=== PATIENT | female | born 1985 | race African-American/Black ===

== ENCOUNTER 2022-05-22 11:17 | Inpatient (IN) | payer OTHER ==
[2022-05-22 11:39] VITALS: BMI 38.2
[2022-05-22] MEDS ORDERED: BISMUTH SUBSALICYLATE 262 MG/15 ML BTL PO PRN (11:55)
[2022-05-22] MEDS ORDERED: POLYETHYLENE GLYCOL (HEALTHYLAX) 3350 17 GM PACKET PO PRN (11:55)
[2022-05-22] MEDS ORDERED: NICOTINE 10 MG CARTRIDGE (INHALER) IH PRN (11:55)
[2022-05-22] MEDS ORDERED: ONDANSETRON *ODT* 4 MG TABLET SL PRN (11:55)
[2022-05-22] MEDS ORDERED: DICYCLOMINE HCL 10 MG CAPSULE PO PRN (11:55)
[2022-05-22] MEDS ORDERED: IBUPROFEN 400 MG TABLET (FP) PO PRN (11:55)
[2022-05-22] MEDS ORDERED: NALOXONE HCL (KLOXXADO) 8 MG SPRAY NS PRN (11:55)
[2022-05-22] MEDS ORDERED: ACETAMINOPHEN 325 MG TABLET (FP) PO PRN ×2 (11:55)
[2022-05-22] MEDS ORDERED: BENZOCAINE/MENTHOL (CHLORASEPTIC ) LOZENGE MM PRN (11:55)
[2022-05-22] MEDS ORDERED: MAGNESIUM HYDROX 2400MG/30ML ORAL SUSPENSION 30 ML CUP PO PRN (11:55)
[2022-05-22] MEDS ORDERED: MAG HYDROX/AL HYDROX/SIMETH 30 ML UNIT-DOSE CUP PO PRN (11:55)
[2022-05-22] MEDS ORDERED: LORazepam 1 MG TABLET PO PRN (11:55)
[2022-05-22] MEDS ORDERED: LOPERAMIDE HCL 2 MG CAPSULE PO PRN (11:55)
[2022-05-22] MEDS ORDERED: IBUPROFEN 600 MG TABLET (FP) PO PRN (11:55)
[2022-05-22] MEDS: PRENATAL VITAMINS W/ FOLIC ACID TABLET (FP) PO SCH (13:00)
[2022-05-22] MEDS: METHOCARBAMOL 500 MG TABLET PO PRN ×2 (13:01→18:08)
[2022-05-22] MEDS: hydrOXYzine PAMOATE 25 MG CAPSULE (FP) PO PRN ×2 (13:01→17:08)
[2022-05-22] MEDS: NICOTINE 14 MG/24 HOURS TOPICAL PATCH TD SCH (13:05)
[2022-05-22] MEDS ORDERED: LORazepam 2 MG TABLET PO SCH (17:00)
[2022-05-22 18:54] LABS: HEMATOCRIT 39.2 % (32.4-45.2); HEMOGLOBIN 12.6 GM/dL (10.7-15.3); MCH 28.5 pg (25.7-33.7); MCHC 32.1 g/dl (32.0-36.0); MEAN CELL VOLUME 88.7 fl (80-96); MEAN PLT VOLUME 7.6 fl (7.5-11.1); PLATELET COUNT 411 10^3/uL (134-434); RBC 4.42 M/mm3 (3.60-5.2); RDW 15.4 % (11.6-15.6)
[2022-05-22 18:56] LABS: ALBUMIN 3.8 g/dl (3.4-5.0); CALCIUM 9.2 mg/dL (8.5-10.1); CREATININE 0.9 mg/dL (0.55-1.3)
[2022-05-22 18:57] LABS: BLOOD UREA NITROGEN 9.6 mg/dL (7-18); TOT PROT 8.2 g/dl (6.4-8.2)
[2022-05-22 18:58] LABS: BILIRUBIN,TOTAL 0.6 mg/dL (0.2-1)
[2022-05-22] MEDS: chlordiazePOXIDE HCL 25 MG CAPSULE PO PRN (19:46)
[2022-05-22] MEDS ORDERED: METOPROLOL TARTRATE 25 MG TABLET (FP) PO ONE (20:57)
[2022-05-22] MEDS ORDERED: MELATONIN 5 MG TABLETS PO SCH (22:00)
[2022-05-22] MEDS: chlordiazePOXIDE HCL 25 MG CAPSULE PO SCH (22:10)
[2022-05-22] MEDS: ATORVASTATIN CA 20 MG TABLET (FP) PO SCH (22:10)
[2022-05-22] MEDS: MELATONIN 5 MG TABLETS PO SCH (22:11)
[2022-05-22] MEDS: THIAMINE HCL 100 MG TABLET (FP) PO SCH (22:11)
[2022-05-23] MEDS: chlordiazePOXIDE HCL 25 MG CAPSULE PO SCH ×4 (05:33→22:12)
[2022-05-23] MEDS ORDERED: PATIENT'S OWN MEDICATION (NON-FORMULARY) (Valsartan [Valsartan] 320 MG Tablet) PO SCH (10:00)
[2022-05-23] MEDS: amLODIPine BESYLATE 5 MG TABLET (FP) PO SCH (10:25)
[2022-05-23] MEDS: METHOCARBAMOL 500 MG TABLET PO PRN ×2 (10:25→17:18)
[2022-05-23] MEDS: ALLOPURINOL 100 MG TABLET (FP) PO SCH (10:26)
[2022-05-23] MEDS: METOPROLOL TARTRATE 25 MG TABLET (FP) PO SCH (10:27)
[2022-05-23] MEDS: NICOTINE 14 MG/24 HOURS TOPICAL PATCH TD SCH (10:27)
[2022-05-23] MEDS: PRENATAL VITAMINS W/ FOLIC ACID TABLET (FP) PO SCH (10:27)
[2022-05-23] MEDS: VALSARTAN 160 MG TABLET PO SCH (10:43)
[2022-05-23] MEDS: chlordiazePOXIDE HCL 25 MG CAPSULE PO PRN ×2 (13:26→20:11)
[2022-05-23] MEDS: ATORVASTATIN CA 20 MG TABLET (FP) PO SCH (22:12)
[2022-05-23] MEDS: MELATONIN 5 MG TABLETS PO SCH (22:12)
[2022-05-23] MEDS: THIAMINE HCL 100 MG TABLET (FP) PO SCH (22:12)
[2022-05-24] MEDS ORDERED: LORazepam 1 MG TABLET PO SCH (05:00)
[2022-05-24] MEDS: chlordiazePOXIDE HCL 25 MG CAPSULE PO SCH ×4 (05:33→22:17)
[2022-05-24] MEDS: amLODIPine BESYLATE 5 MG TABLET (FP) PO SCH (10:02)
[2022-05-24] MEDS: PRENATAL VITAMINS W/ FOLIC ACID TABLET (FP) PO SCH (10:02)
[2022-05-24] MEDS: METOPROLOL TARTRATE 25 MG TABLET (FP) PO SCH (10:02)
[2022-05-24] MEDS: ALLOPURINOL 100 MG TABLET (FP) PO SCH (10:03)
[2022-05-24] MEDS: VALSARTAN 160 MG TABLET PO SCH (10:03)
[2022-05-24] MEDS: NICOTINE 14 MG/24 HOURS TOPICAL PATCH TD SCH (10:03)
[2022-05-24] MEDS: chlordiazePOXIDE HCL 25 MG CAPSULE PO PRN ×2 (13:36→19:37)
[2022-05-24] MEDS: METHOCARBAMOL 500 MG TABLET PO PRN (17:18)
[2022-05-24] MEDS: MELATONIN 5 MG TABLETS PO SCH (22:15)
[2022-05-24] MEDS: THIAMINE HCL 100 MG TABLET (FP) PO SCH (22:16)
[2022-05-24] MEDS: ATORVASTATIN CA 20 MG TABLET (FP) PO SCH (22:17)
[2022-05-25] MEDS ORDERED: LORazepam 0.5 MG TABLET PO PRN
[2022-05-25] MEDS ORDERED: chlordiazePOXIDE HCL 10 MG CAPSULE PO PRN
[2022-05-25] MEDS ORDERED: LORazepam 0.5 MG TABLET PO SCH (05:00)
[2022-05-25] MEDS: chlordiazePOXIDE HCL 10 MG CAPSULE PO SCH ×4 (05:33→22:12)
[2022-05-25] MEDS: NICOTINE 14 MG/24 HOURS TOPICAL PATCH TD SCH (10:16)
[2022-05-25] MEDS: amLODIPine BESYLATE 5 MG TABLET (FP) PO SCH (10:16)
[2022-05-25] MEDS: VALSARTAN 160 MG TABLET PO SCH (10:16)
[2022-05-25] MEDS: PRENATAL VITAMINS W/ FOLIC ACID TABLET (FP) PO SCH (10:16)
[2022-05-25] MEDS: METOPROLOL TARTRATE 25 MG TABLET (FP) PO SCH (10:16)
[2022-05-25] MEDS: METHOCARBAMOL 500 MG TABLET PO PRN ×2 (10:16→20:21)
[2022-05-25] MEDS: ALLOPURINOL 100 MG TABLET (FP) PO SCH (10:17)
[2022-05-25] MEDS ORDERED: diphenhydrAMINE HCL 50 MG CAPSULE PO ONE (13:39)
[2022-05-25 16:58] VITALS: RESP 18
[2022-05-25] MEDS ORDERED: SUVOREXANT 10 MG TABLET PO PRN (22:00)
[2022-05-25] MEDS: ATORVASTATIN CA 20 MG TABLET (FP) PO SCH (22:12)
[2022-05-25] MEDS: THIAMINE HCL 100 MG TABLET (FP) PO SCH (22:12)
[2022-05-26] MEDS ORDERED: LORazepam 0.5 MG TABLET PO ONE (05:00)
[2022-05-26] MEDS ORDERED: chlordiazePOXIDE HCL 10 MG CAPSULE PO SCH (05:00)
[2022-05-26] MEDS: ALLOPURINOL 100 MG TABLET (FP) PO SCH (09:50)
[2022-05-26] MEDS: METOPROLOL TARTRATE 25 MG TABLET (FP) PO SCH (09:50)
[2022-05-26] MEDS: amLODIPine BESYLATE 5 MG TABLET (FP) PO SCH (09:51)
[2022-05-26] MEDS: VALSARTAN 160 MG TABLET PO SCH (09:51)
[2022-05-26] MEDS: PRENATAL VITAMINS W/ FOLIC ACID TABLET (FP) PO SCH (09:51)
[2022-05-26] MEDS: NICOTINE 14 MG/24 HOURS TOPICAL PATCH TD SCH (09:51)
[2022-05-26 12:54] VITALS: BP 145/77; PULSE 62; TEMP 98.1
[2022-05-27] MEDS ORDERED: chlordiazePOXIDE HCL 10 MG CAPSULE PO ONE (05:00)
== END 2022-05-26 13:45 | disposition home or self-care (01) | DRG 897 ==
LOC: YASAS 11:17 → Y6N 12:10
PROVIDERS: ADMIT Allergy & Immunology; ATTEND Family Medicine
PROC: HZ2ZZZZ Detoxification Services for Substance Abuse Treatment (ICD-10-PCS; principal; 2022-05-22)
DX: F10.230 Alcohol dependence with withdrawal, uncomplicated (principal); F10.280 Alcohol dependence with alcohol-induced anxiety disorder; F10.282 Alcohol dependence with alcohol-induced sleep disorder; F41.9 Anxiety disorder, unspecified; F17.210 Nicotine dependence, cigarettes, uncomplicated; I10 Essential (primary) hypertension; E78.5 Hyperlipidemia, unspecified; E11.9 Type 2 diabetes mellitus without complications; Z79.84 Long term (current) use of oral hypoglycemic drugs; M10.9 Gout, unspecified; E66.9 Obesity, unspecified; Z68.38 Body mass index [BMI] 38.0-38.9, adult
CPT/HCPCS: 36415; 80053; 81025; 83036; 85027; 86780; 93005; 93010; C9803-CS; Q0162; U0003; U0005

== ENCOUNTER 2024-03-26 11:34 | Inpatient (IN) | payer BC ==
[2024-03-26 12:16] VITALS: BMI 36.9
[2024-03-26] MEDS ORDERED: ACETAMINOPHEN 325 MG TABLET (FP) PO PRN (12:33)
[2024-03-26] MEDS ORDERED: LOPERAMIDE HCL 2 MG CAPSULE PO PRN (12:33)
[2024-03-26] MEDS ORDERED: NICOTINE POLACRILEX 2 MG GUM BUC PRN (12:33)
[2024-03-26] MEDS ORDERED: guaiFENesin 600 MG TABLET.ER (FP) PO PRN (12:33)
[2024-03-26] MEDS ORDERED: MAGNESIUM HYDROX 2400MG/30ML ORAL SUSPENSION 30 ML CUP PO PRN (12:33)
[2024-03-26] MEDS ORDERED: BENZOCAINE/MENTHOL (CHLORASEPTIC ) LOZENGE MM PRN (12:33)
[2024-03-26] MEDS ORDERED: POLYETHYLENE GLYCOL (HEALTHYLAX) 3350 17 GM PACKET PO PRN (12:33)
[2024-03-26] MEDS ORDERED: MAG HYDROX/AL HYDROX/SIMETH 30 ML UNIT-DOSE CUP PO PRN (12:33)
[2024-03-26] MEDS ORDERED: BENZONATATE 200 MG CAPSULE PO PRN (12:33)
[2024-03-26] MEDS ORDERED: BISMUTH SUBSALICYLATE 524 MG/30 ML PO PRN (12:33)
[2024-03-26] MEDS ORDERED: NICOTINE POLACRILEX 2 MG LOZENGE BC PRN (12:33)
[2024-03-26] MEDS ORDERED: IBUPROFEN 400 MG TABLET (FP) PO PRN (12:33)
[2024-03-26] MEDS ORDERED: DICYCLOMINE HCL 10 MG CAPSULE PO PRN (12:33)
[2024-03-26] MEDS: chlordiazePOXIDE HCL 25 MG CAPSULE PO ONE (13:05)
[2024-03-26] MEDS ORDERED: chlordiazePOXIDE HCL 25 MG CAPSULE ONE (13:08)
[2024-03-26] MEDS: ONDANSETRON *ODT* 4 MG TABLET SL PRN (14:27)
[2024-03-26] MEDS: PARoxetine HCL 20 MG TABLET PO ONE (15:42)
[2024-03-26] MEDS: chlordiazePOXIDE HCL 25 MG CAPSULE PO SCH (17:26)
[2024-03-26] MEDS: METHOCARBAMOL 500 MG TABLET PO PRN (17:27)
[2024-03-26] MEDS ORDERED: FENOFIBRIC ACID 135 MG CAP PO SCH (18:00)
[2024-03-26] MEDS: chlordiazePOXIDE HCL 25 MG CAPSULE PO PRN (19:43)
[2024-03-26] MEDS ORDERED: MELATONIN 5 MG TABLETS PO SCH (22:00)
[2024-03-26] MEDS: SUVOREXANT 10 MG TABLET PO PRN (23:05)
[2024-03-26] MEDS: THIAMINE 100 MG TABLET PO SCH (23:06)
[2024-03-26] MEDS: FENOFIBRIC ACID 135 MG CAP PO SCH (23:06)
[2024-03-26] MEDS: hydrOXYzine PAMOATE 25 MG CAPSULE (FP) PO PRN (23:07)
[2024-03-26] MEDS: ROSUVASTATIN CA 20 MG TABLET PO SCH (23:09)
[2024-03-27] MEDS: chlordiazePOXIDE HCL 25 MG CAPSULE PO SCH (05:52)
[2024-03-27] MEDS ORDERED: PATIENT'S OWN MEDICATION (NON-FORMULARY) (Amlodipine/Valsartan [Exforge 5-320 Mg Tablet] 1 PO SCH (10:00)
[2024-03-27] MEDS: PRENATAL VITAMINS W/ FOLIC ACID TABLET (FP) PO SCH (10:20)
[2024-03-27] MEDS: amLODIPine BESYLATE 5 MG TABLET (FP) PO SCH (10:20)
[2024-03-27] MEDS: VALSARTAN 160 MG TABLET PO SCH (11:06)
[2024-03-27] MEDS: PARoxetine HCL 20 MG TABLET PO SCH (12:07)
[2024-03-27] MEDS: ALLOPURINOL 100 MG TABLET (FP) PO SCH (14:00)
[2024-03-27] MEDS: NICOTINE 7 MG/24 HOURS TOPICAL PATCH TD SCH (14:01)
[2024-03-27 16:00] LABS: HEMOGLOBIN 10.9 GM/dL (10.7-15.3); MCH 30.4 pg (25.7-33.7); MCHC 32.1 g/dl (32.0-36.0); MEAN CELL VOLUME 94.8 fl (80-96); MEAN PLT VOLUME 7.1 fl (7.5-11.1); PLATELET COUNT 299 10^3/uL (134-434); RBC 3.59 M/mm3 (3.60-5.2); RDW 17.8 % (11.6-15.6)
[2024-03-27] MEDS: IBUPROFEN 600 MG TABLET (FP) PO PRN (17:35)
[2024-03-27 18:28] LABS: POTASSIUM 3.2 mmol/L (3.5-5.1)
[2024-03-27 18:35] LABS: CALCIUM 9.1 mg/dL (8.5-10.1)
[2024-03-27 18:36] LABS: ALBUMIN 3.6 g/dl (3.4-5.0); BLOOD UREA NITROGEN 13.7 mg/dL (7-18)
[2024-03-27 18:38] LABS: CREATININE 0.8 mg/dL (0.55-1.3)
[2024-03-27 18:40] LABS: BILIRUBIN,TOTAL 0.6 mg/dL (0.2-1); TOT PROT 7.4 g/dl (6.4-8.2)
[2024-03-28] MEDS: chlordiazePOXIDE HCL 10 MG CAPSULE PO SCH (05:41)
[2024-03-28] MEDS: POTASSIUM CHLORIDE ORAL LIQUID 20 MEQ/15 ML PO ONE (10:01)
[2024-03-28] MEDS: METHOCARBAMOL 500 MG TABLET PO PRN (15:02)
[2024-03-28] MEDS: hydrOXYzine PAMOATE 50 MG CAPSULE (FP) PO ONE (15:02)
[2024-03-28] MEDS: hydrOXYzine PAMOATE 50 MG CAPSULE (FP) PO PRN (21:03)
[2024-03-29] MEDS: chlordiazePOXIDE HCL 10 MG CAPSULE PO SCH (05:45)
[2024-03-29 13:00] LABS: HEMATOCRIT 31.6 % (32.4-45.2); HEMOGLOBIN 10.4 GM/dL (10.7-15.3); MCH 31.6 pg (25.7-33.7); MEAN CELL VOLUME 95.7 fl (80-96); MEAN PLT VOLUME 6.8 fl (7.5-11.1); PLATELET COUNT 246 10^3/uL (134-434); RDW 18.3 % (11.6-15.6); WHITE BLOOD COUNT 8.3 K/mm3 (4.0-10.0)
[2024-03-29 13:02] LABS: POTASSIUM 3.6 mmol/L (3.5-5.1)
[2024-03-29 13:11] LABS: CALCIUM 9.4 mg/dL (8.5-10.1)
[2024-03-29 13:12] LABS: BLOOD UREA NITROGEN 11.1 mg/dL (7-18)
[2024-03-29 13:13] LABS: ALBUMIN 3.4 g/dl (3.4-5.0)
[2024-03-29 13:16] LABS: CREATININE 0.9 mg/dL (0.55-1.3)
[2024-03-29 13:17] LABS: BILIRUBIN,TOTAL 0.3 mg/dL (0.2-1); TOT PROT 7.3 g/dl (6.4-8.2)
[2024-03-29] MEDS: PARoxetine HCL 20 MG TABLET PO SCH (14:32)
[2024-03-29 15:01] LABS: ANISOCYTOSIS 0; HELMET CELLS 0; HOWELL-JOLLY BODIES 0; MACROCYTOSIS 0; OVALOCYTE 0; ROULEAU 0; SICKELED CELLS 0; TARGET CELLS 0; TEAR DROP CELLS 0; TOXIC GRANULATION 0
[2024-03-29] MEDS: chlordiazePOXIDE HCL 10 MG CAPSULE PO PRN (21:58)
[2024-03-29] MEDS ORDERED: SUVOREXANT 10 MG TABLET PO PRN (22:00)
[2024-03-30] MEDS: chlordiazePOXIDE HCL 10 MG CAPSULE PO ONE (05:58)
[2024-03-30 09:19] VITALS: BP 145/90; PULSE 90; RESP 16; TEMP 97.4
[2024-03-30] MEDS ORDERED: PARoxetine HCL 20 MG TABLET PO SCH (14:00)
== END 2024-03-30 09:14 | disposition home or self-care (01) | DRG 897 ==
LOC: YASAS 11:34 → Y6N 14:39
PROVIDERS: ADMIT Allergy & Immunology; ATTEND Surgery
PROC: HZ2ZZZZ Detoxification Services for Substance Abuse Treatment (ICD-10-PCS; principal; 2024-03-26)
DX: F10.230 Alcohol dependence with withdrawal, uncomplicated (principal); F17.210 Nicotine dependence, cigarettes, uncomplicated; F10.282 Alcohol dependence with alcohol-induced sleep disorder; F10.280 Alcohol dependence with alcohol-induced anxiety disorder; F32.A Depression, unspecified; E87.6 Hypokalemia; E78.2 Mixed hyperlipidemia; I10 Essential (primary) hypertension; M1A.20X0 Drug-induced chronic gout, unspecified site, without tophus (tophi); Z86.39 Personal history of other endocrine, nutritional and metabolic disease
CPT/HCPCS: 36415; 80053; 80305; 80307; 81025; 85025; 85027; 86780; 93005; 93010; Q0162